=== PATIENT | male | born 1960 | race Caucasian/White ===

== ENCOUNTER 2020-12-09 17:56 | Emergency (ER) | payer OTHER, SELFPAY ==
--- NOTE | ~2020-12-09 | CT_ITS ---
EXAMINATION: CT abdomen pelvis wo con DATE: 12/09/2020 20:20 INDICATION: Right flank pain TECHNIQUE: Computed tomography (CT) of the abdomen and pelvis was performed without intravenous contr ast. The dose-length product (DLP) was 860.68 mGy-cm. Automated exposure control and iterative recons truction technique were employed. COMPARISON: 04/06/2019 FINDINGS: Minimal dependent atelectasis is present in the lung bases. The heart size is normal. The l iver, spleen, pancreas, gallbladder, and adrenal glands are normal. There is a 3 mm stone of the dist al right ureter which causes mild right hydroureteronephrosis. Nonobstructing stones of the right kid angelika upper pole measure up to 3 mm. There are nonobstructing stones of the left kidney which measure u p to 3 mm. Calcified atherosclerosis is noted. No pathologically enlarged abdominal or pelvic lymph n odes are identified. There is no free intraperitoneal gas or evidence of bowel obstruction. There is a small umbilical hernia containing fat. Mild lumbar spondylosis is noted. IMPRESSION: 1. 3 mm stone of the distal right ureter causing mild right hydroureteronephrosis. 2. Bilateral nephrolithiasis. Reviewed, dictated and finalized at location A. IMPRESSION: 1. 3 mm stone of the distal right ureter causing mild right hydroureteronephros is. 2. Bilateral nephrolithiasis.
[2020-12-09 18:09] VITALS: BP 175/86; PULSE 72; RESP 20; TEMP 36.6; O2SAT 100
[2020-12-09 18:28] LABS: Basophils Absolute Auto 0.1 K/mm3 (0.0-0.1); Basophils Percent Auto 0.7 % (0.2-1.2); Eosinophils Absolute Auto 0.2 K/mm3 (0-0.3); Eosinophils Percent Auto 1.5 % (0-4.4); Hematocrit 45.3 % (42.0-52.0); Hemoglobin 15.7 g/dL (14.0-18.0); Immature Granulocyte Absolute 0.03 K/mm3 (0.00-0.031); Immature Granulocyte Percent A 0.3 % (0-0.5); Lymphocytes Absolute Auto 2.33 K/mm3 (0.9-3.2); Lymphocytes Percent Auto 23.1 % (18.3-44.2); Mean Corpuscular HGB Conc 34.7 g/dl (32-36); Mean Corpuscular Hemoglobin 30.1 pg (26-34); Mean Corpuscular Volume 86.8 fl (80-100); Monocytes Absolute Auto 0.9 K/mm3 (0.1-0.6); Monocytes Percent Auto 8.4 % (2.6-8.5); Neutrophils Absolute Auto 6.7 K/mm3 (1.3-6.7); Platelet Count Result 204 k/mm3 (150-375); Red Blood Count 5.22 M/mm3 (4.6-6.20); Red Cell Distribution Width 12.7 % (11.5-14.5); White Blood Count 10.1 K/mm3 (4.5-10.0)
[2020-12-09 18:36] LABS: Add Urine Microscopic? YES; Appearance Urine Clear (Clear); Bilirubin Urine Negative (Negative); Blood Urine 1+ (Negative); Color Urine Yellow (Yellow); Glucose Urine UA Negative (Negative); Ketones Urine Negative (Negative); Leukocyte Esterase Ur Negative LEU/UL (Negative); Mucus Urine Rare /lpf; Nitrate Urine Negative (Negative); Protein Urine Negative (Negative); Specific Grav Ur 1.021 (1.001-1.035); Urobilinogen Urine Negative mg/dL (<2.0); WBC Urine 0-3 /hpf
[2020-12-09 18:42] LABS: Anion Gap 11 mmol/L (8-16); Blood Urea Nitrogen 17 mg/dL (9-20); Calcium 9.9 mg/dL (8.4-10.2); Carbon Dioxide 24 mmol/L (22-30); Chloride 104 mmol/L (98-107); Estimated CRCL calculation 76 ml/min; Estimated Glomerular Filt Rate > 60; Glucose 102 mg/dL (65-110); Potassium 4.4 mmol/L (3.4-5.0); Sodium 139 mmol/L (137-145)
--- NOTE | 2020-12-09 20:15 | PC.NURSE ---
pt to CT at this time
[2020-12-09] MEDS: ONDANSETRON INJ 4 MG/2 ML VIAL IV PUSH (20:31)
[2020-12-09] MEDS: SODIUM CHLORIDE 0.9% IV 1,000 ML 999 ML IV CONT (20:33)
[2020-12-09 20:57] VITALS: BP 156/90; PULSE 65; RESP 18; O2SAT 99
--- NOTE | 2020-12-09 21:01 | ED.GENADULT ---
HPI - General Adult General Chief complaint: Abdominal Pain Stated complaint: Right side flank pain Time Seen by Provider: 12/09/20 20:01 Source: patient and RN notes reviewed Mode of arrival: ambulatory Limitations: no limitations History of Present Illness HPI narrative: Patient is a 60-year-old male who presents to emergency department for evaluation of flank pain that began acutely today notes history of urolithiasis patient notes sharp stabbing pain from the right lower back into the groin patient notes some associated nausea denies any other complaints or symptoms presents in no distress slightly uncomfortable has not taken anything for his symptoms Related Data Home Medications Medication Instructions Recorded Confirmed [place]-3 04/06/19 aspirin 04/06/19 meloxicam 04/06/19 nebivolol [Bystolic] mg 04/06/19 Allergies Allergy/AdvReac Type Severity Reaction Status Date / Time No Known Allergies Allergy Unknown Verified 03/25/15 08:26 Review of Systems Review of Systems: All systems reviewed & are unremarkable except as noted in HPI and below PMFSH Past Medical History Medical History Arthritis HTN (hypertension) Surgical History Surgical History History of hand surgery Social History Social History Alcohol intake: current Gender identity (if verbalized by the patient): Male Exam Narrative: GENERAL: Well-appearing, well-nourished, uncomfortable and in no acute distress. HEAD: Normocephalic, atraumatic. EYES: PERRLA and EOMI. ENT: Nares clear, no rhinorrhea or epistaxis. Mucous membranes moist. CHEST: Clear to auscultation. No respiratory distress. No wheezes rales or rhonchi HEART: Regular rate and rhythm. No murmur heard. Normal peripheral pulses. ABDOMEN: Soft, nontender, nondistended EXTREMITIES: Normal range of motion. No edema. SKIN: Warm, dry, no rash. NEURO: No focal deficits. Alert and oriented x3. PSYCH: Normal mood and affect. Course Course Emergency Course: Patient in the room aware of case findings treatment plan diagnosis given medications with improvement is afebrile with no emesis resting comfortably in the room feeling much better at this time ABCs and vital signs intact and stable will be referred to urology Vital Signs Vital signs: Vital Signs Temperature 97.9 F 12/09/20 18:09 Pulse Rate 72 12/09/20 18:09 Respiratory Rate 20 12/09/20 18:09 Blood Pressure 175/86 H 12/09/20 18:09 Pulse Oximetry 100 12/09/20 18:09 Temperature 97.9 F 12/09/20 18:09 Pulse Rate 65 12/09/20 20:57 Respiratory Rate 18 12/09/20 20:57 Blood Pressure 156/90 H 12/09/20 20:57 Pulse Oximetry 99 12/09/20 20:57 Medical Decision Making MDM Narrative Medical decision making narrative: Patient presented with flank pain found to have kidney stone will be discharged home with outpatient follow-up provided with reasons to return Vital Signs Vital Signs: Vital Signs Temperature 97.9 F 12/09/20 18:09 Pulse Rate 72 12/09/20 18:09 Respiratory Rate 20 12/09/20 18:09 Blood Pressure 175/86 H 12/09/20 18:09 Pulse Oximetry 100 12/09/20 18:09 Temperature 97.9 F 12/09/20 18:09 Pulse Rate 65 12/09/20 20:57 Respiratory Rate 18 12/09/20 20:57 Blood Pressure 156/90 H 12/09/20 20:57 Pulse Oximetry 99 12/09/20 20:57 Lab Data Result diagrams: 12/09/20 18:20 12/09/20 18:20 Labs: Lab Results 12/09/20 12/09/20 12/09/20 Range/Units 18:20 18:20 18:25 WBC 10.1 H (4.5-10.0) K/mm3 RBC 5.22 (4.6-6.20) M/mm3 Hgb 15.7 (14.0-18.0) g/dL Hct 45.3 (42.0-52.0) % MCV 86.8 (80-100) fl MCH 30.1 (26-34) pg MCHC 34.7 (32-36) g/dl RDW 12.7 (11.5-14.5) % Plt Count 204 (150-375) k/mm3 MPV 11.0 H (7.4-10.4)
[2020-12-09] MEDS: KETOROLAC 30 MG/ML VIAL (*BKC) IV PUSH (21:07)
[2020-12-09 21:17] VITALS: BP 149/76; PULSE 69; RESP 18; O2SAT 100
--- NOTE | 2020-12-20 15:57 | PC.NURSE ---
LATE ENTRY This note is being entered to document information to the patient's record. The following information was omitted on [12/09/20], by [Ted Schwab]. NS stop time is 2130, 1000ml infused
== END 2020-12-09 21:19 | disposition home or self-care (01) ==
PROVIDERS: Emergency Provider Emergency Medicine; PCP Family Medicine Sports Medicine
DX: N13.2 Hydronephrosis with renal and ureteral calculous obstruction (principal); M19.90 Unspecified osteoarthritis, unspecified site; I10 Essential (primary) hypertension; Z79.82 Long term (current) use of aspirin
CPT/HCPCS: 36415; 74176; 80048; 81001; 85025; 96361; 96374; 96375; 99284; J0131; J1885; J2405; J7030

== ENCOUNTER 2021-10-18 07:17 | Emergency (ER) | payer OTHER, SELFPAY ==
--- NOTE | ~2021-10-18 | XR_ITS ---
XR abdomen/kub 1V 10/18/2021 10:26 Indication: Urethral stone Procedure: KUB Comparison: CT dated 10/18/2021 Findings: Bowel gas pattern is nonspecific with moderate gas in mildly dilated small bowel throughout the abdomen, likely ileus. There is a calcification overlying the sacrum on the left which may corre spond to the distal ureteral stone seen on CT dated 10/18/2021. The kidneys are obscured by bowel con tent limiting evaluation for renal stones. No acute osseous abnormality. Impression: 1: Possible distal left ureteral stone overlying the sacrum. 2: Nonspecific bowel gas pattern. No obstruction. Reviewed, dictated and finalized at location B. Impression: 1: Possible distal left ureteral stone overlying the sacrum. 2: Nonspecific bowel gas pattern. No obstruction.
--- NOTE | ~2021-10-18 | CT_ITS ---
EXAMINATION: CT abdomen pelvis wo con DATE: 10/18/2021 07:40 INDICATION: Left flank pain. TECHNIQUE: Computed tomography (CT) of the abdomen and pelvis was performed without intravenous contr ast. Automated exposure control and iterative reconstruction technique were employed. The dose-length product was 809.80 mGy-cm. COMPARISON: CT abdomen and pelvis 12/09/2020 FINDINGS: The visualized portions of the lung bases demonstrate mild atelectasis. No pleural effusion . The heart size is normal. There are coronary artery calcifications. No pericardial effusion. There is diffuse hepatic steatosis. The gallbladder, spleen, pancreas, and adrenal glands are normal. There are approximately five 1-2 mm stones in right kidney. There are approximately six 1-3 mm stones in l eft kidney. There is mild left hydronephrosis and hydroureter. There is a 3 mm stone in distal left u reter. There are bilateral inguinal hernias containing fat. There are no dilated loops of bowel. The appendix is normal. There are no pathologically enlarged lymph nodes. There is no free intraperitonea l fluid. There is mild thoracolumbar spondylosis. IMPRESSION: 1. 3 mm stone in distal left ureter with mild left hydronephrosis and hydroureter. 2. Bilateral nonobstructing kidney stones. Reviewed, dictated and finalized at location A. IMPRESSION: 1. 3 mm stone in distal left ureter with mild left hydronephrosis and hydrouret er. 2. Bilateral nonobstructing kidney stones.
[2021-10-18 07:20] VITALS: BP 180/79; PULSE 87; RESP 16; TEMP 36.8; O2SAT 95
[2021-10-18 07:47] LABS: Basophils Absolute Auto 0.1 K/mm3 (0.0-0.1); Basophils Percent Auto 0.8 % (0.2-1.2); Eosinophils Absolute Auto 0.1 K/mm3 (0-0.3); Eosinophils Percent Auto 1.4 % (0-4.4); Hematocrit 41.8 % (42.0-52.0); Hemoglobin 14.6 g/dL (14.0-18.0); Immature Granulocyte Absolute 0.03 K/mm3 (0.00-0.031); Immature Granulocyte Percent A 0.4 % (0-0.5); Lymphocytes Absolute Auto 1.86 K/mm3 (0.9-3.2); Lymphocytes Percent Auto 23.3 % (18.3-44.2); Mean Corpuscular HGB Conc 34.9 g/dl (32-36); Mean Corpuscular Hemoglobin 30.3 pg (26-34); Mean Corpuscular Volume 86.7 fl (80-100); Mean Platelet Volume 11.2 fl (7.4-10.4); Monocytes Absolute Auto 0.7 K/mm3 (0.1-0.6); Monocytes Percent Auto 8.8 % (2.6-8.5); Neutrophils Absolute Auto 5.2 K/mm3 (1.3-6.7); Neutrophils Percent Auto 65.3 % (45.5-73.1); Platelet Count Result 207 k/mm3 (150-375); Red Blood Count 4.82 M/mm3 (4.6-6.20); Red Cell Distribution Width 12.6 % (11.5-14.5)
[2021-10-18 07:49] LABS: Anion Gap 10 mmol/L (8-16); Blood Urea Nitrogen 22 mg/dL (9-20); Carbon Dioxide 23 mmol/L (22-30); Chloride 105 mmol/L (98-107); Estimated CRCL calculation 50 ml/min; Estimated Glomerular Filt Rate 36; Glucose 122 mg/dL (65-110); Potassium 4.5 mmol/L (3.4-5.0); Sodium 138 mmol/L (137-145)
--- NOTE | 2021-10-18 07:50 | PC.NURSE ---
Patient states he is unable to urinate at this time.
[2021-10-18 08:31] LABS: Mucus Urine Rare /lpf; WBC Urine 0-3 /hpf
[2021-10-18 08:39] LABS: Add Urine Microscopic? YES; Appearance Urine Clear (Clear); Bilirubin Urine Negative (Negative); Blood Urine 1+ (Negative); Color Urine Yellow (Yellow); Glucose Urine UA Negative (Negative); Ketones Urine Trace mg/dL (Negative); Leukocyte Esterase Ur Negative LEU/UL (Negative); Nitrate Urine Negative (Negative); Protein Urine Negative (Negative); Urobilinogen Urine 0.2 mg/dL (<2.0)
--- NOTE | 2021-10-18 09:34 | ED.MALEGU ---
HPI - Male Genitourinary General Chief complaint: Urogenital-Male Stated complaint: kidney stone? Time Seen by Provider: 10/18/21 07:20 History of Present Illness HPI Narrative: Patient is a 61-year-old male who presents ER with concerns for kidney stone. He has been having left-sided flank pain for the last week. Increasing pain last night. He also worsens when he drinks water because he thinks it makes his stone moved. No urinary frequency or urgency. No dysuria. Denies fevers or chills or sweats. Has been taking Flomax over the last couple days without improvement. Related Data Home Medications Medication Instructions Recorded Confirmed [place]-3 04/06/19 aspirin 04/06/19 meloxicam 15 mg tablet 04/06/19 nebivolol 5 mg tablet (Bystolic) mg 04/06/19 Allergies Allergy/AdvReac Type Severity Reaction Status Date / Time No Known Allergies Allergy Unknown Verified 10/18/21 07:26 Review of Systems Review of Systems: All systems reviewed & are unremarkable except as noted in HPI and below Constitutional: Constitutional: Denies chills and Denies fever(s) ENT: Denies nasal congestion and Denies sore throat Cardiovascular: Cardiovascular: Denies chest pain, Denies rapid heart rate and Denies radiating jaw, neck or arm pain Gastrointestinal: Gastrointestinal: Reports abdominal pain, Reports nausea and Denies vomiting Genitourinary: Genitourinary: Denies hematuria, Denies dysuria, Denies urinary frequency and Denies urinary incontinence Comments: Positive flank pain PMFSH Past Medical History Medical History (Updated 10/18/21 @ 10:36 by Darrell Hoyt MD) Arthritis HTN (hypertension) Kidney stones Surgical History Surgical History History of hand surgery Social History Social History Alcohol intake: current Gender identity (if verbalized by the patient): Male Exam Narrative: GENERAL: Well-appearing, well-nourished, and in no acute distress. HEAD: Normocephalic, atraumatic. EYES: PERRL and EOMI. CHEST: Clear to auscultation. No respiratory distress. HEART: Regular rate and rhythm. Normal peripheral pulses. ABDOMEN: Soft, nontender, nondistended, no CVA tenderness. EXTREMITIES: Normal range of motion. No edema. SKIN: Warm, dry, no rash. NEURO: Alert and oriented x3. PSYCH: Normal mood and affect. Course Course Emergency Course: Discussed case with Dr. Garcia and slight elevation in creatinine compared to baseline. Recommends IV fluids and follow-up in clinic as well as straining urine. Patient verbalized understanding of treatment plan. Currently having dull 3/10 pain Vital Signs Vital signs: Vital Signs Temperature 98.2 F 10/18/21 07:20 Pulse Rate 87 10/18/21 07:20 Respiratory Rate 16 10/18/21 07:20 Blood Pressure 180/79 H 10/18/21 07:20 Pulse Oximetry 95 10/18/21 07:20 Oxygen Delivery Room Air 10/18/21 07:20 Temperature 98.2 F 10/18/21 07:20 Pulse Rate 76 10/18/21 10:09 Respiratory Rate 16 10/18/21 10:09 Blood Pressure 141/74 H 10/18/21 10:09 Pulse Oximetry 100 10/18/21 10:09 Oxygen Delivery Room Air 10/18/21 07:20 MDM - Male Genitourinary Lab Data Result diagrams: 10/18/21 07:31 10/18/21 07:31 Labs: Lab Results 10/18/21 10/18/21 10/18/21 Range/Units 07:31 07:31 08:11 WBC 8.0 (4.5-10.0) K/mm3 RBC 4.82 (4.6-6.20) M/mm3 Hgb 14.6 (14.0-18.0) g/dL Hct 41.8 L (42.0-52.0) % MCV 86.7 (80-100) fl MCH 30.3 (26-34) pg MCHC 34.9 (32-36) g/dl RDW 12.6 (11.5-14.5) % Plt Count 207 (150-375) k/mm3 MPV 11.2 H (7.4-10.4) fl Immature Gran % (Auto) 0.4 (0-0.5) % Neut % (Auto) 65.3 (45.5-73.1) % Lymph % (Auto) 23.3 (18.3-44.2) % Clark % (Auto) 8.8 H (2.6-8.5) % Eos % (Auto) 1.4 (0-4.4) % Baso % (Auto) 0.8
[2021-10-18] MEDS: SODIUM CHLORIDE 0.9% IV 1,000 ML 999 ML IV CONT (10:07)
[2021-10-18 10:09] VITALS: BP 141/74; PULSE 76; RESP 16; O2SAT 100
[2021-10-18] MEDS: HYDROcodone/acetaminophen (*CRX) 5-325 MG TABLET 1 TAB PO (11:29)
[2021-10-18 11:36] VITALS: BP 142/78; PULSE 78; RESP 18; O2SAT 100
== END 2021-10-18 11:38 | disposition home or self-care (01) ==
PROVIDERS: Emergency Provider Emergency Medicine; PCP Family Medicine Sports Medicine
DX: N20.1 Calculus of ureter (principal); I10 Essential (primary) hypertension
CPT/HCPCS: 36415; 74018; 74176; 80048; 81001; 85025; 96360; 99284; A9270; J7030

== ENCOUNTER 2021-11-01 13:18 | Outpatient (CLI) | payer OTHER, SELFPAY ==
--- NOTE | ~2021-11-01 | XR_ITS ---
EXAMINATION: XR abdomen/kub 1V DATE: 11/01/2021 13:31 INDICATION: Left flank pain. Left ureteral stone. TECHNIQUE: A supine view of the abdomen on 2 radiographs was obtained. COMPARISON: Abdomen radiograph 10/18/2021, CT abdomen and pelvis 10/18/2021 FINDINGS: There are two 2 mm stones in right kidney. There are no dilated loops of bowel. IMPRESSION: 1. Small right kidney stones. Reviewed, dictated and finalized at location A.
== END 2021-11-01 13:19 | disposition home or self-care (01) ==
PROVIDERS: PCP Family Medicine Sports Medicine; Visit Provider Nurse Practitioner Adult Health
DX: N20.0 Calculus of kidney (principal)
CPT/HCPCS: 74018

== ENCOUNTER → 2021-11-08 08:26 | Outpatient (CLI) | payer OTHER, SELFPAY ==
--- NOTE | ~2021-11-08 | CT_ITS ---
EXAMINATION: CT abdomen pelvis wo con DATE: 11/08/2021 09:10 INDICATION: Left ureteral stone TECHNIQUE: Computed tomography (CT) of the abdomen and pelvis was performed without intravenous contr ast. Automated exposure control and iterative reconstruction technique were employed. Exam dose: 123 0.04 mGy-cm total exam DLP. COMPARISON: 11/01/2021 KUB 10/18/2021 KUB 10/18/[address] abdomen pelvis FINDINGS: There is interval resolution of the 3 mm calculus of the distal left ureter and left mild h ydroureteronephrosis since 10/18/2021, presumably due to passage of the left ureteral stone. Scattered multiple bilateral punctate nonobstructing kidney stones are again identified. The lung bases are clear of infiltrate or consolidation. Heart size is within normal range. No perica rdial or pleural effusion. Hepatic steatosis. No hepatic, splenic, pancreatic, adrenal or renal space-occupying mass lesion is e vident. There is atherosclerotic calcification but normal caliber of the abdominal aorta. No intraperitoneal or retroperitoneal or pelvic mass lesion or adenopathy or ascites. The urinary bladder is unremarkabl e. Normal appendix. No bowel obstruction or free air. Minimal diverticulosis of the colon; no CT evidenc e of diverticulitis. Mild bilateral fat containing inguinal hernias. Old fracture deformity of the lateral aspect of the left 10th rib. Diffuse idiopathic skeletal hyperostosis of the thoracic spine. Mild degenerative spurring of the lum bar spine. No suspicious osteolytic or osteoblastic lesions are noted. IMPRESSION: Interval passage of 3 mm distal left ureteral calculus and resolution of left hydrourete ronephrosis since 10/28/2021 Reviewed, dictated and finalized at [facility]. Reviewed, dictated and finalized at location B. IMPRESSION: Interval passage of 3 mm distal left ureteral calculus and resolut ion of left hydroureteronephrosis since 10/28/2021
== END ==
PROVIDERS: PCP Family Medicine Sports Medicine; Visit Provider Nurse Practitioner Adult Health
DX: N20.1 Calculus of ureter (principal)
CPT/HCPCS: 74176

== ENCOUNTER → 2022-05-27 08:17 | Outpatient (CLI) | payer OTHER, SELFPAY ==
--- NOTE | ~2022-05-27 | XR_ITS ---
XR abdomen/kub 1V DATE: 05/27/2022 08:40 INDICATION: Kidney calculus TECHNIQUE: AP projection, 2 views COMPARISON: 05/27/2022 CT abdomen pelvis FINDINGS: There is a very faint calcific density overlying the lower pole left kidney consistent with very small lower pole left renal calculus noted on 05/27/2022 CT abdomen pelvis. Another left and sev eral right pinpoint nonobstructing renal calculi noted on 05/27/2022 CT abdomen pelvis examination are not radiographically detected. The psoas shadows are intact. No visceromegaly is evident. No bowel obstruction is detected. IMPRESSION: Nephrolithiasis Reviewed, dictated and finalized at [facility]. Reviewed, dictated and finalized at location B. E GRINDER IMPRESSION: Nephrolithiasis
--- NOTE | ~2022-05-27 | CT_ITS ---
EXAMINATION: CT abdomen pelvis wo con DATE: 05/27/2022 08:40 INDICATION: Calculus of kidney TECHNIQUE: Computed tomography (CT) of the abdomen and pelvis was performed without intravenous contr ast. Automated exposure control and iterative reconstruction technique were employed. Exam dose: 109 2.66 mGy-cm total exam DLP. COMPARISON: 11/08/2021 CT abdomen pelvis FINDINGS: Minimal atelectasis at the right lung base. The lung bases are otherwise clear of infiltrat e or consolidation. Normal heart size. Coronary artery calcification. No pericardial or pleural effus ion. There is diffuse hepatic steatosis. No hepatic space-occupying mass lesion is evident. The gallbladde r appears unremarkable, without pericholecystic fat stranding or fluid. No bile duct or pancreatic du ct dilatation. No pancreatic mass lesion or calcification. Normal splenic size. Normal morphology of the adrenal glands. At least several right and at least 2 left punctate nonobstructing calculi noted. No ureteral calculi or hydroureteronephrosis. The urinary bladder, prostate gland and seminal vesicles are unremarkable. Bilateral fat-containing inguinal hernias, larger on the right. There is atherosclerotic calcification but normal caliber of the abdominal aorta and calcification at the origins of the renal arteries. No intraperitoneal or retroperitoneal or pelvic mass lesion or ad enopathy or ascites. Normal appendix. Diverticulosis of the colon; no CT evidence of diverticulitis. No bowel obstruction, bowel wall thickening, pneumatosis or intraperitoneal free air. Diffuse idiopathic skeletal hyperostosis of the thoracic spine. No suspicious osteolytic or osteoblas tic lesions are noted. IMPRESSION: Occasional bilateral punctate nonobstructing renal calculi; no ureteral calculus or hydr oureteronephrosis Hepatic steatosis Normal appendix Diverticulosis of the colon Reviewed, dictated and finalized at Location [facility]. Reviewed, dictated and finalized at location B. OPERATOR IMPRESSION: Occasional bilateral punctate nonobstructing renal calculi; no ure teral calculus or hydroureteronephrosis Hepatic steatosis Normal appendix Diverticulosis of the colon
== END ==
PROVIDERS: PCP Family Medicine Sports Medicine; Visit Provider Nurse Practitioner Adult Health
DX: N20.0 Calculus of kidney (principal); K57.30 Diverticulosis of large intestine without perforation or abscess without bleeding; K76.0 Fatty (change of) liver, not elsewhere classified
CPT/HCPCS: 74018; 74176